=== PATIENT | female | born 1950 | race Caucasian/White ===

== ENCOUNTER 2016-08-27 15:20 | Inpatient (IN) | payer OTHER ==
[~2016-08-27] VITALS: Ht 167.6 cm; Wt 62.7 kg
[2016-08-27] MEDS ORDERED: LIDOCAINE 1%, 10ML INFIL ONE (16:30)
[2016-08-27] MEDS ORDERED: SODIUM CHLORIDE 0.9% 1,000ML IVBOLUS ONE (16:30)
[2016-08-27] MEDS ORDERED: SODIUM CHLORIDE FLUSH 10ML SYR IVF ONE (16:30)
[2016-08-27] MEDS ORDERED: CALC1TAB50 PO (16:35)
[2016-08-27] MEDS ORDERED: OMEP-110 PO (16:35)
[2016-08-27] MEDS ORDERED: CYCL-259 PO (16:35)
[2016-08-27] MEDS ORDERED: FLUO20CA8 PO (16:35)
[2016-08-27] MEDS ORDERED: DOXY50CA42 PO (16:35)
[2016-08-27] MEDS ORDERED: EZET10TA3 PO (16:35)
[2016-08-27] MEDS ORDERED: FURO-92 PO (16:35)
[2016-08-27] MEDS ORDERED: BACL20TA PO (16:35)
[2016-08-27] MEDS ORDERED: ASPI-496 PO (16:35)
[2016-08-27] MEDS ORDERED: SIMV20TA3 PO (16:35)
[2016-08-27] MEDS ORDERED: iron PO (16:35)
[2016-08-27] MEDS ORDERED: LIPA1CAP4 PO (16:35)
[2016-08-27] MEDS ORDERED: LEVO100T5 PO (16:35)
[2016-08-27] MEDS ORDERED: HYDR2TAB13 PO (16:35)
[2016-08-27] MEDS ORDERED: INSU100C5 SQ-INSULIN (16:37)
[2016-08-27] MEDS ORDERED: CHOL100015 PO (16:37)
[2016-08-27 16:46] LABS: BLOOD UREA NITROGEN 96 mg/dL (7-18)
[2016-08-27 16:53] LABS: IS PT STATUS REG ER OR PRE ER? YES
[2016-08-27] MEDS ORDERED: morphine SULFATE 10 MG/ML, 1ML IVPush ONE (17:00)
[2016-08-27] MEDS ORDERED: LIDOCAINE 1%, 20ML ONE (17:03)
[2016-08-27] MEDS ORDERED: MORPHINE SULFATE 4 MG/ML, 1ML ONE (17:29)
[2016-08-27] MEDS ORDERED: POTASSIUM CHLORIDE 20 MEQ TAB.ER.PRT PO ONE (20:00)
[2016-08-27] MEDS ORDERED: ERGOCALCIFEROL 50,000 UNIT CAPSULE PO SCH (20:00)
[2016-08-27] MEDS ORDERED: GUAIFENESIN/DM 200-20MG, 10ML UDC PO PRN (20:00)
[2016-08-27] MEDS: CALCIUM/VITAMIN D3 250-125 TABLET PO SCH (21:00)
[2016-08-27 23:00] VITALS: BP 106/49
[2016-08-28] MEDS: NS + 20MEQ KCL 1,000 ML IV SCH ×3 (00:15→20:08)
[2016-08-28] MEDS: FAMOTIDINE 20 MG TABLET PO SCH ×2 (00:20→08:10)
[2016-08-28] MEDS: OMEPRAZOLE 20 MG CAPSULE.DR PO SCH ×3 (00:20→16:33)
[2016-08-28] MEDS: BACLOFEN 10 MG TABLET PO SCH ×3 (00:20→21:29)
[2016-08-28] MEDS: SIMVASTATIN 20 MG TABLET PO SCH ×2 (00:20→21:29)
[2016-08-28] MEDS: CYCLOBENZAPRINE 10 MG TABLET PO SCH ×4 (00:21→21:28)
[2016-08-28] MEDS: PANCRELIPASE 24,000 CAPSULE.DR PO SCH ×4 (00:21→21:28)
[2016-08-28] MEDS: FERROUS SULFATE 325 MG TABLET PO SCH ×3 (00:21→21:30)
[2016-08-28] MEDS: HEPARIN 5,000 UNITS/ML, 1ML SQ SCH ×4 (00:22→23:54)
[2016-08-28 02:01] VITALS: BP 112/65
[2016-08-28] MEDS ORDERED: MORPHINE SULFATE 4 MG/ML, 1ML ONE (02:10)
[2016-08-28] MEDS: morphine SULFATE 10 MG/ML, 1ML IVPush PRN (02:16)
[2016-08-28 05:49] LABS: BLOOD UREA NITROGEN 96 mg/dL (7-18)
[2016-08-28] MEDS: LEVOTHYROXINE 100 MCG TABLET PO SCH (05:57)
[2016-08-28 08:00] VITALS: BP 138/82
[2016-08-28] MEDS: INSULIN ASPART 100 UNITS/ML, PEN SQ-INSULIN SCH ×4 (08:09→21:37)
[2016-08-28] MEDS: EZETIMIBE 10 MG TABLET PO SCH (08:09)
[2016-08-28] MEDS: FLUOXETINE 20 MG CAPSULE PO SCH (08:10)
[2016-08-28] MEDS: CALCIUM/VITAMIN D3 250-125 TABLET PO SCH ×2 (08:11→21:30)
[2016-08-28] MEDS: ASPIRIN 81 MG TABLET EC PO SCH (08:11)
[2016-08-28] MEDS: SENNA/DOCUSATE TABLET PO SCH (08:22)
[2016-08-28] MEDS ORDERED: POTASSIUM CHLORIDE 20 MEQ TAB.ER.PRT PO ONE (10:30)
[2016-08-28] MEDS ORDERED: DOXYCYCLINE 100MG TABLET PO SCH (11:00)
[2016-08-28] MEDS: DOXYCYCLINE 100MG TABLET PO SCH ×2 (12:27→21:29)
[2016-08-28 13:49] VITALS: BP 118/62
[2016-08-28 20:00] VITALS: BP 125/78
[2016-08-29 02:00] VITALS: BP 146/80
[2016-08-29] MEDS: NS + 20MEQ KCL 1,000 ML IV SCH (05:01)
[2016-08-29] MEDS: morphine SULFATE 10 MG/ML, 1ML IVPush PRN (05:02)
[2016-08-29] MEDS: LEVOTHYROXINE 100 MCG TABLET PO SCH (05:02)
[2016-08-29 06:37] LABS: BLOOD UREA NITROGEN 72 mg/dL (7-18)
[2016-08-29] MEDS: INSULIN ASPART 100 UNITS/ML, PEN SQ-INSULIN SCH ×4 (07:00→21:00)
[2016-08-29 07:43] VITALS: BP 115/62
[2016-08-29] MEDS ORDERED: DEXTROSE 50%, 50ML SYRINGE ONE (08:18)
[2016-08-29] MEDS: PANCRELIPASE 24,000 CAPSULE.DR PO SCH ×3 (08:30→20:47)
[2016-08-29] MEDS: DOXYCYCLINE 100MG TABLET PO SCH ×2 (08:30→20:46)
[2016-08-29] MEDS: OMEPRAZOLE 20 MG CAPSULE.DR PO SCH ×2 (08:30→16:17)
[2016-08-29] MEDS: HEPARIN 5,000 UNITS/ML, 1ML SQ SCH ×2 (08:30→16:17)
[2016-08-29] MEDS: CYCLOBENZAPRINE 10 MG TABLET PO SCH ×3 (08:30→20:46)
[2016-08-29] MEDS: FLUOXETINE 20 MG CAPSULE PO SCH (08:30)
[2016-08-29] MEDS: FAMOTIDINE 20 MG TABLET PO SCH (08:30)
[2016-08-29] MEDS: CALCIUM/VITAMIN D3 250-125 TABLET PO SCH ×2 (08:30→20:46)
[2016-08-29] MEDS ORDERED: DEXTROSE 4 GM TAB.CHEW PO PRN (08:30)
[2016-08-29] MEDS: ASPIRIN 81 MG TABLET EC PO SCH (08:30)
[2016-08-29] MEDS ORDERED: DEXTROSE 50%, 50ML SYRINGE IVPush PRN (08:30)
[2016-08-29] MEDS ORDERED: GLUCAGON 1 MG IM PRN (08:30)
[2016-08-29] MEDS: EZETIMIBE 10 MG TABLET PO SCH (08:30)
[2016-08-29] MEDS: FERROUS SULFATE 325 MG TABLET PO SCH ×2 (08:30→20:47)
[2016-08-29] MEDS: BACLOFEN 10 MG TABLET PO SCH ×2 (08:30→20:46)
[2016-08-29] MEDS: SENNA/DOCUSATE TABLET PO SCH (08:31)
[2016-08-29] MEDS: SODIUM CHLORIDE FLUSH 10ML SYR IVF SCH ×2 (09:00→20:47)
[2016-08-29] MEDS ORDERED: FUROSEMIDE 20 MG/2 ML IV ONE (12:30)
[2016-08-29 14:00] VITALS: BP 126/55
[2016-08-29] MEDS: ONDANSETRON 2MG/ML, 2ML IVPush PRN (16:51)
[2016-08-29] MEDS ORDERED: NS + 20MEQ KCL 1,000 ML IV SCH (18:00)
[2016-08-29 20:00] VITALS: BP 130/88
[2016-08-29] MEDS: SIMVASTATIN 20 MG TABLET PO SCH (20:46)
[2016-08-29] MEDS ORDERED: INSULIN ASPART 100 UNITS/ML, PEN SQ-INSULIN ONE (22:00)
[2016-08-29 22:13] LABS: ASPARTATE AMINO TRANSFERASE 25 U/L (15-37); BLOOD UREA NITROGEN 63 mg/dL (7-18)
[2016-08-29 22:32] LABS: PH, VENOUS 7.406 pH (7.320-7.420)
[2016-08-29] MEDS: SODIUM CHLORIDE 0.9% 1,000 ML IV SCH (23:08)
[2016-08-30] MEDS: HEPARIN 5,000 UNITS/ML, 1ML SQ SCH ×3 (01:27→16:17)
[2016-08-30 02:00] VITALS: BP 118/76
[2016-08-30] MEDS: morphine SULFATE 10 MG/ML, 1ML IVPush PRN (03:54)
[2016-08-30] MEDS: ONDANSETRON 2MG/ML, 2ML IVPush PRN (04:43)
[2016-08-30 05:22] LABS: BLOOD UREA NITROGEN 57 mg/dL (7-18)
[2016-08-30] MEDS: LEVOTHYROXINE 100 MCG TABLET PO SCH (05:43)
[2016-08-30 07:10] VITALS: BP 123/69
[2016-08-30] MEDS: INSULIN ASPART 100 UNITS/ML, PEN SQ-INSULIN SCH ×3 (08:27→16:17)
[2016-08-30] MEDS: FLUOXETINE 20 MG CAPSULE PO SCH (08:29)
[2016-08-30] MEDS: EZETIMIBE 10 MG TABLET PO SCH (08:29)
[2016-08-30] MEDS: BACLOFEN 10 MG TABLET PO SCH (08:30)
[2016-08-30] MEDS: FAMOTIDINE 20 MG TABLET PO SCH (08:30)
[2016-08-30] MEDS: FERROUS SULFATE 325 MG TABLET PO SCH (08:30)
[2016-08-30] MEDS: PANCRELIPASE 24,000 CAPSULE.DR PO SCH ×2 (08:30→16:17)
[2016-08-30] MEDS: SENNA/DOCUSATE TABLET PO SCH (08:30)
[2016-08-30] MEDS: DOXYCYCLINE 100MG TABLET PO SCH (08:30)
[2016-08-30] MEDS: CALCIUM/VITAMIN D3 250-125 TABLET PO SCH (08:30)
[2016-08-30] MEDS: OMEPRAZOLE 20 MG CAPSULE.DR PO SCH ×2 (08:31→16:17)
[2016-08-30] MEDS: CYCLOBENZAPRINE 10 MG TABLET PO SCH ×2 (08:31→16:17)
[2016-08-30] MEDS: ASPIRIN 81 MG TABLET EC PO SCH (08:31)
[2016-08-30] MEDS: SODIUM CHLORIDE FLUSH 10ML SYR IVF SCH (08:34)
[2016-08-30] MEDS: SODIUM CHLORIDE 0.9% 1,000 ML IV SCH ×2 (08:46→16:17)
[2016-08-30 13:00] VITALS: BP 130/63
== END 2016-08-30 18:37 | disposition home or self-care (01) | DRG 683 ==
LOC: ED 18:11 → EDIP 19:07 → 4EST 21:42
PROVIDERS: ADMIT Internal Medicine; ATTEND Internal Medicine
DX: N17.0 Acute kidney failure with tubular necrosis (principal); E44.0 Moderate protein-calorie malnutrition; E87.1 Hypo-osmolality and hyponatremia; E86.0 Dehydration; E87.6 Hypokalemia; D64.9 Anemia, unspecified; Z88.5 Allergy status to narcotic agent; Z68.22 Body mass index [BMI] 22.0-22.9, adult; E03.9 Hypothyroidism, unspecified; E11.65 Type 2 diabetes mellitus with hyperglycemia; E78.5 Hyperlipidemia, unspecified; F17.200 Nicotine dependence, unspecified, uncomplicated; G89.4 Chronic pain syndrome; M54.9 Dorsalgia, unspecified; M19.90 Unspecified osteoarthritis, unspecified site; E11.51 Type 2 diabetes mellitus with diabetic peripheral angiopathy without gangrene; W18.30XA Fall on same level, unspecified, initial encounter; Z66 Do not resuscitate; Z96.643 Presence of artificial hip joint, bilateral; Z96.652 Presence of left artificial knee joint; Z80.8 Family history of malignant neoplasm of other organs or systems; Y93.89 Activity, other specified; Y92.89 Other specified places as the place of occurrence of the external cause; Y99.8 Other external cause status; Z71.3 Dietary counseling and surveillance; S00.83XA Contusion of other part of head, initial encounter; I73.9 Peripheral vascular disease, unspecified
CPT/HCPCS: 36415; 70450; 72072; 72125; 80048; 80053; 82040; 82550; 82803; 82947; 82962; 83036; 84132; 84484; 85025; 85610; 85730; 93005; 96361; 96374; J1644; J2405; J3480; J1940; J2270; J7030